=== PATIENT | male | born 1970 | race Caucasian/White ===

== ENCOUNTER 2018-02-23 20:33 | Emergency (ER) | payer BC ==
[~2018-02-23] VITALS: Ht 177.8 cm; Wt 124.7 kg
[2018-02-23 20:50] VITALS: Ht 177.8 cm; Wt 124.7 kg
[2018-02-23 22:38] VITALS: BP 141/89
== END 2018-02-23 22:38 | disposition home or self-care (01) ==
LOC: ED 20:33
DX: I83.91 Asymptomatic varicose veins of right lower extremity (principal); I10 Essential (primary) hypertension

== ENCOUNTER 2020-10-02 13:36 | Inpatient (IN) | payer BC, SELFPAY ==
[~2020-10-02] VITALS: Ht 182.9 cm; Wt 125.0 kg
[2020-10-02 13:46] VITALS: Ht 182.9 cm; Wt 125.0 kg
[2020-10-02 15:40] LABS: BASOPHIL % 0.2 % (0.2-1.5); PLATELET COUNT 222 x10^3mcL (152-348); RED CELL DISTRIBUTION WIDTH 13.6 % (12.1-16.2)
[2020-10-02 16:29] LABS: CALCIUM 8.3 mg/dL (8.5-10.1); CARBON DIOXIDE 26.7 mmol/L (21-32); CHLORIDE SERUM 101 mmol/L (98-107); GFR1 > 60 mL/min; GLUCOSE SERUM 134 mg/dL (74-106); POTASSIUM SERUM 4.1 mmol/L (3.5-5.1); SODIUM SERUM 139 mmol/L (136-145)
[2020-10-02 16:38] LABS: ALKALINE PHOSPHATASE 81 U/L (46-116); ALT/SGPT 45 U/L (16-63); AST/SGOT 49 U/L (15-37); BILIRUBIN TOTAL 0.91 mg/dL (0.20-1.00); LIPASE 682 IU/L (73-393); TOTAL PROTEIN, SERUM 7.9 g/dL (6.4-8.2)
[2020-10-02 17:12] LABS: ALBUMIN 2.6 g/dL (3.4-5.0)
[2020-10-02 17:42] LABS: C REACTIVE PROTEIN 6.7 mg/dL (<=0.9)
[2020-10-02 20:57] LABS: microscopic required? YES; urine erythrocyte 1+ (NEGATIVE)
[2020-10-03 04:41] LABS: BASOPHIL % 0.2 % (0.2-1.5); PLATELET COUNT 235 x10^3mcL (152-348); RED CELL DISTRIBUTION WIDTH 13.4 % (12.1-16.2)
[2020-10-03 05:10] VITALS: BP 141/99
[2020-10-03 05:22] LABS: CALCIUM 8.7 mg/dL (8.5-10.1); CARBON DIOXIDE 25.4 mmol/L (21-32); CHLORIDE SERUM 102 mmol/L (98-107); GFR1 > 60 mL/min; GLUCOSE SERUM 136 mg/dL (74-106); SODIUM SERUM 140 mmol/L (136-145)
[2020-10-03 18:40] VITALS: BP 140/82
[2020-10-03 23:37] LABS: BILIRUBIN DIRECT 0.67 mg/dL (0.0-0.2); BILIRUBIN TOTAL 1.01 mg/dL (0.20-1.00)
[2020-10-03 23:39] LABS: ALBUMIN 2.6 g/dL (3.4-5.0)
[2020-10-04 07:45] LABS: BILIRUBIN DIRECT 0.55 mg/dL (0.0-0.2); BILIRUBIN TOTAL 1.01 mg/dL (0.20-1.00); TOTAL PROTEIN, SERUM 7.7 g/dL (6.4-8.2)
[2020-10-04 07:47] LABS: ALBUMIN 2.4 g/dL (3.4-5.0)
[2020-10-05 07:14] LABS: BASOPHIL % 0.1 % (0.2-1.5); PLATELET COUNT 371 x10^3mcL (152-348); RED CELL DISTRIBUTION WIDTH 13.2 % (12.1-16.2)
[2020-10-05 07:35] LABS: CALCIUM 8.7 mg/dL (8.5-10.1); CARBON DIOXIDE 30.4 mmol/L (21-32); CHLORIDE SERUM 102 mmol/L (98-107); CREATININE SERUM 0.8 mg/dL (0.7-1.3); GFR1 > 60 mL/min; GLUCOSE SERUM 142 mg/dL (74-106); POTASSIUM SERUM 4.2 mmol/L (3.5-5.1); SODIUM SERUM 140 mmol/L (136-145)
[2020-10-05 07:38] LABS: BILIRUBIN TOTAL 0.79 mg/dL (0.20-1.00); TOTAL PROTEIN, SERUM 7.4 g/dL (6.4-8.2)
[2020-10-05 07:45] LABS: ALBUMIN 2.4 g/dL (3.4-5.0)
[2020-10-05 08:31] LABS: BILIRUBIN DIRECT 0.34 mg/dL (0.0-0.2)
[2020-10-06 17:36] VITALS: BP 121/91
[2020-10-06 18:18] VITALS: BP 121/91
[2020-10-06 21:50] VITALS: BP 126/80
[2020-10-07 06:00] VITALS: BP 147/75
[2020-10-07 09:04] VITALS: BP 126/87
[2020-10-07 11:54] VITALS: BP 119/58
[2020-10-07 16:27] VITALS: BP 122/77
[2020-10-07 20:59] VITALS: BP 127/84
[2020-10-08 04:58] VITALS: BP 129/81
[2020-10-08 08:20] LABS: BASOPHIL % 0.3 % (0.2-1.5); RED CELL DISTRIBUTION WIDTH 13.7 % (12.1-16.2)
[2020-10-08 09:07] LABS: CALCIUM 8.7 mg/dL (8.5-10.1); CARBON DIOXIDE 24.5 mmol/L (21-32); CHLORIDE SERUM 101 mmol/L (98-107); CREATININE SERUM 0.8 mg/dL (0.7-1.3); GFR1 > 60 mL/min; GLUCOSE SERUM 136 mg/dL (74-106); POTASSIUM SERUM 4.2 mmol/L (3.5-5.1); SODIUM SERUM 137 mmol/L (136-145)
[2020-10-08 09:57] VITALS: BP 121/85
[2020-10-08 13:05] VITALS: BP 103/82
[2020-10-08 15:21] LABS: PLATELET COUNT 517 x10^3mcL (152-348)
[2020-10-08 16:38] VITALS: BP 131/85
[2020-10-08 20:26] VITALS: BP 121/84
[2020-10-09 05:51] VITALS: BP 139/93
[2020-10-09 08:35] LABS: CALCIUM 9.2 mg/dL (8.5-10.1); CARBON DIOXIDE 25.9 mmol/L (21-32); CHLORIDE SERUM 104 mmol/L (98-107); CREATININE SERUM 0.8 mg/dL (0.7-1.3); GFR1 > 60 mL/min; GLUCOSE SERUM 149 mg/dL (74-106); POTASSIUM SERUM 4.7 mmol/L (3.5-5.1); SODIUM SERUM 140 mmol/L (136-145)
[2020-10-09 08:48] VITALS: BP 137/96
[2020-10-09 11:33] VITALS: BP 118/87
[2020-10-09 16:36] VITALS: BP 135/91
[2020-10-09 20:14] VITALS: BP 127/90
[2020-10-09 23:11] LABS: BASOPHIL % 0.1 % (0.2-1.5)
[2020-10-09 23:12] LABS: RED CELL DISTRIBUTION WIDTH 13.6 % (12.1-16.2)
[2020-10-09 23:18] LABS: PLATELET COUNT 437 x10^3mcL (152-348)
[2020-10-10] VITALS (9 sets, daily range): BP systolic 102–122; BP diastolic 68–80
[2020-10-10 06:56] LABS: BASOPHIL % 0.2 % (0.2-1.5); PLATELET COUNT 346 x10^3mcL (152-348); RED CELL DISTRIBUTION WIDTH 13.8 % (12.1-16.2)
[2020-10-10 06:58] LABS: BILIRUBIN TOTAL 0.9 mg/dL (0.20-1.00); CALCIUM 8.7 mg/dL (8.5-10.1); CARBON DIOXIDE 27.4 mmol/L (21-32); CREATININE SERUM 1.8 mg/dL (0.7-1.3); TOTAL PROTEIN, SERUM 7.3 g/dL (6.4-8.2)
[2020-10-10 07:03] LABS: ALBUMIN 1.8 g/dL (3.4-5.0)
[2020-10-10 07:04] LABS: POTASSIUM SERUM 5.7 mmol/L (3.5-5.1)
[2020-10-11] VITALS (10 sets, daily range): BP systolic 11–115; BP diastolic 65–73
[2020-10-11 06:30] LABS: BASOPHIL % 0.9 % (0.2-1.5); PLATELET COUNT 237 x10^3mcL (152-348); RED CELL DISTRIBUTION WIDTH 13.5 % (12.1-16.2)
[2020-10-11 06:52] LABS: CALCIUM 8.2 mg/dL (8.5-10.1); CARBON DIOXIDE 26.1 mmol/L (21-32); CREATININE SERUM 3.1 mg/dL (0.7-1.3)
[2020-10-11 07:00] LABS: POTASSIUM SERUM 5.7 mmol/L (3.5-5.1)
[2020-10-12] VITALS (8 sets, daily range): BP systolic 101–131; BP diastolic 62–79
[2020-10-12 06:35] LABS: BASOPHIL % 0.2 % (0.2-1.5); PLATELET COUNT 268 x10^3mcL (152-348); RED CELL DISTRIBUTION WIDTH 13.4 % (12.1-16.2)
[2020-10-12 06:43] LABS: CALCIUM 8.2 mg/dL (8.5-10.1); CREATININE SERUM 3.3 mg/dL (0.7-1.3); POTASSIUM SERUM 5.1 mmol/L (3.5-5.1)
[2020-10-12 06:53] LABS: MAGNESIUM 2.6 mg/dL (1.8-2.4); PHOSPHOROUS 7.5 mg/dL (2.5-4.9)
[2020-10-13] VITALS (8 sets, daily range): BP systolic 119–136; BP diastolic 72–84
[2020-10-13 17:19] LABS: CALCIUM 7.6 mg/dL (8.5-10.1); CARBON DIOXIDE 24.5 mmol/L (21-32); CREATININE SERUM 3.9 mg/dL (0.7-1.3); POTASSIUM SERUM 4.5 mmol/L (3.5-5.1)
[2020-10-13 18:43] LABS: BASOPHIL % 0.6 % (0.2-1.5); PLATELET COUNT 263 x10^3mcL (152-348); RED CELL DISTRIBUTION WIDTH 13.4 % (12.1-16.2)
[2020-10-14] VITALS (9 sets, daily range): BP systolic 94–136; BP diastolic 56–82
[2020-10-14 09:30] LABS: BASOPHIL % 0.5 % (0.2-1.5)
[2020-10-14 09:32] LABS: PLATELET COUNT 233 x10^3mcL (152-348); RED CELL DISTRIBUTION WIDTH 13.5 % (12.1-16.2)
[2020-10-14 09:46] LABS: CALCIUM 8.5 mg/dL (8.5-10.1); CARBON DIOXIDE 27.4 mmol/L (21-32); MAGNESIUM 2.4 mg/dL (1.8-2.4); PHOSPHOROUS 5.7 mg/dL (2.5-4.9); POTASSIUM SERUM 4.4 mmol/L (3.5-5.1)
[2020-10-14 10:03] LABS: CREATININE SERUM 4.5 mg/dL (0.7-1.3)
[2020-10-15 03:45] VITALS: BP 106/59
[2020-10-15 06:06] LABS: PLATELET COUNT 203 x10^3mcL (152-348); RED CELL DISTRIBUTION WIDTH 13.7 % (12.1-16.2)
[2020-10-15 06:43] LABS: CALCIUM 8.4 mg/dL (8.5-10.1); CARBON DIOXIDE 22.7 mmol/L (21-32); MAGNESIUM 2.7 mg/dL (1.8-2.4); PHOSPHOROUS 7.1 mg/dL (2.5-4.9); POTASSIUM SERUM 5.2 mmol/L (3.5-5.1)
[2020-10-15 06:51] LABS: CREATININE SERUM 6.6 mg/dL (0.7-1.3)
== END 2020-10-15 19:28 | DRG 177 ==
LOC: ED 13:36 → DU 17:27 → IC 10-09 22:19
PROVIDERS: Emergency Medicine; Internal Medicine; Internal Medicine Nephrology; ADMIT Internal Medicine; ATTEND Internal Medicine
PROC: XW033E5 Introduction of Remdesivir Anti-infective into Peripheral Vein, Percutaneous Approach, New Technology Group 5 (ICD-10-PCS; principal; 2020-10-03)
PROC: 02HV33Z Insertion of Infusion Device into Superior Vena Cava, Percutaneous Approach (ICD-10-PCS; 2020-10-11)
PROC: B548ZZA Ultrasonography of Superior Vena Cava, Guidance (ICD-10-PCS; 2020-10-11)
PROC: 5A1D70Z Performance of Urinary Filtration, Intermittent, Less than 6 Hours Per Day (ICD-10-PCS; 2020-10-11)
PROC: 5A1D70Z Performance of Urinary Filtration, Intermittent, Less than 6 Hours Per Day (ICD-10-PCS; 2020-10-13)
PROC: 5A12012 Performance of Cardiac Output, Single, Manual (ICD-10-PCS; 2020-10-15)
DX: U07.1 COVID-19 (principal); J96.01 Acute respiratory failure with hypoxia; N17.0 Acute kidney failure with tubular necrosis; J12.82 Pneumonia due to coronavirus disease 2019; I10 Essential (primary) hypertension; E66.9 Obesity, unspecified; Z71.3 Dietary counseling and surveillance; J44.9 Chronic obstructive pulmonary disease, unspecified; E87.5 Hyperkalemia; I46.9 Cardiac arrest, cause unspecified; Z68.37 Body mass index [BMI] 37.0-37.9, adult
CPT/HCPCS: 36556; 36600; 82962; 83880; 85378; 87804; A4628; C9113; G0378; J1100; J1644; J1650; J2060; J2250; J2405; J2543; J2704; J3010; J3490; J7030; J7040; J8540; U0003